=== PATIENT | male | born 1980 | race Caucasian/White ===

== ENCOUNTER 2017-08-15 14:23 | Emergency (ER) | payer MEDICAID ==
[~2017-08-15] VITALS: Ht 177.8 cm; Wt 80.0 kg
[2017-08-15 14:30] VITALS: BP 127/71
[2017-08-15] MEDS ORDERED: SODIUM CHLORIDE FLUSH 10ML SYR IVF ONE (14:30)
[2017-08-15] MEDS ORDERED: MORPHINE SULFATE 4 MG/ML, 1ML IV PRN (14:30)
[2017-08-15] MEDS ORDERED: CEFAZOLIN PMX 1GM/50ML 50 ML IVPB ONE (14:30)
[2017-08-15] MEDS ORDERED: DIPH,PERTUSS(ACELL),TET VAC/PF 0.5 ML IM-VACC ONE ×2 (14:30→14:38)
[2017-08-15] MEDS ORDERED: ONDANSETRON 2MG/ML, 2ML IVPush ONE (14:30)
[2017-08-15] MEDS ORDERED: CEFAZOLIN PMX 1GM/50ML 50 ML ONE (14:38)
[2017-08-15] MEDS ORDERED: MORPHINE SULFATE 4 MG/ML, 1ML ONE (14:38)
[2017-08-15] MEDS ORDERED: BACITRACIN ZINC OINT 500U/GM, 0.9 GM ONE (14:38)
[2017-08-15] MEDS ORDERED: OXYC-302 PO (14:41)
[2017-08-15] MEDS ORDERED: CYCL-259 PO (14:41)
== END 2017-08-15 16:09 | disposition home or self-care (01) ==
LOC: ED 15:23
DX: S61.012A Laceration without foreign body of left thumb without damage to nail, initial encounter (principal); G89.29 Other chronic pain; W26.0XXA Contact with knife, initial encounter; Y93.89 Activity, other specified; Y92.098 Other place in other non-institutional residence as the place of occurrence of the external cause; Y99.8 Other external cause status
CPT/HCPCS: 12002; 73130; 90715; 96365; 96372; 96375; 99284; J0690

== ENCOUNTER 2017-11-29 10:29 | Emergency (ER) | payer MEDICAID ==
[~2017-11-29] VITALS: Ht 167.6 cm; Wt 83.0 kg
[~2017-11-29 10:29] MED LIST: CYCL-259 PO; OXYC-302 PO
[2017-11-29 10:32] VITALS: BP 132/88
[2017-11-29] MEDS ORDERED: MORPHINE (11:13)
[2017-11-29] MEDS ORDERED: OXYC-307 PO (11:14)
== END 2017-11-29 11:48 | disposition home or self-care (01) ==
LOC: ED 11:42
DX: J20.8 Acute bronchitis due to other specified organisms (principal); M54.9 Dorsalgia, unspecified; G89.29 Other chronic pain
CPT/HCPCS: 71046; 99284